=== PATIENT | female | born 1955 | race Two or more races ===

== ENCOUNTER 2025-04-24 13:20 | Day surgery (SDC) | payer MEDICARE, MEDICAID, SELFPAY ==
[2025-04-23 13:53] VITALS: BMI 30.1
[2025-04-24] VITALS (11 sets, daily range): BP systolic 103–158; BP diastolic 72–99; PULSE 74–83; RESP 13–18; TEMP 36.4–36.6; O2SAT 97–100; BMI 29.6
[2025-04-24] MEDS: RINGERS LACTATED 1000 ML 1,000 ML 100 ML IV (14:52)
[2025-04-24] MEDS: MIDAZOLAM INJ 1 MG/ML VIAL 2 ML (ASD USE ONLY) 2 MG IVP (14:54)
[2025-04-24] MEDS: fentaNYL CIT INJ 50 mCg/ML AMP 2ML (ASD USE ONLY) IVP (14:54)
== END 2025-04-24 15:55 | disposition home or self-care (01) ==
PROVIDERS: Referring Provider Surgery; Visit Provider Surgery
PROC: 0DBE8ZX Excision of Large Intestine, Via Natural or Artificial Opening Endoscopic, Diagnostic (ICD-10-PCS; CPT 45380; principal; 2025-04-24 14:30)
DX: Z12.11 Encounter for screening for malignant neoplasm of colon (principal); E11.9 Type 2 diabetes mellitus without complications; F41.9 Anxiety disorder, unspecified; F32.A Depression, unspecified; H91.90 Unspecified hearing loss, unspecified ear; Z86.0101 Personal history of adenomatous and serrated colon polyps; Z90.710 Acquired absence of both cervix and uterus
CPT/HCPCS: G0105; J1200; J2250; J3010; J7120